=== PATIENT | male | born 1965 | race Caucasian/White ===

== ENCOUNTER 2018-08-02 19:37 | Emergency (ER) | payer SELFPAY ==
[~2018-08-02] VITALS: Ht 177.8 cm; Wt 71.0 kg
[2018-08-02 19:50] VITALS: BP 146/72
--- NOTE | 2018-08-02 19:54 | NUR ---
PT REFUSING TO GET ON BED. PT STATES HE DOES NOT WANT TO BE HERE. 2 SLICES OF PIZZA PROVIDED FOR PT AND ONE BOTTLE OF WATER.
--- NOTE | 2018-08-02 20:40 | NUR ---
PT RESTING IN CHAIR. PIZZA WAS CONSUMED. RESPIRATIONS EVEN AND UNLABORED.
--- NOTE | 2018-08-02 21:37 | NUR ---
PT AMBULATED WITH A STEADY GAIT. PT DID NOT WISH TO WAIT FOR DISCHARGE PAPERS. PT DID EXPRESS WANTING TO SLEEP IN THE HOSPITAL MORE BUT DENIED ANY MEDICAL PROBLEMS. PT STATED HE IS HOMELESS AND JUST NEEDS TO SLEEP. PT EDUCATED ON THE NEED FOR THE HOSPITAL BED FOR OTHERS AND WAS GIVEN THE ADDRESS TO THE MEN'S DROP IN [facility]. PT WAS SEEN WALKING AWAY FROM THE ER WITH A STEADY GAIT AND IN NO OBVIOUS DISTRESS.
== END 2018-08-02 21:43 | disposition home or self-care (01) ==
LOC: ED 21:37
DX: F10.220 Alcohol dependence with intoxication, uncomplicated (principal); F17.200 Nicotine dependence, unspecified, uncomplicated
CPT/HCPCS: 99283